=== PATIENT | female | born 2000 ===

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

== ENCOUNTER 2020-05-08 14:47 | Inpatient (IN) | payer OTHER ==
[~2020-05-08] VITALS: Ht 162.6 cm; Wt 44.0 kg
[2020-05-08 15:30] LABS: Source, Urine Clean Catch
[2020-05-08 15:35] LABS: BASOPHILS ABSOLUTE AUTO 0.06 K/mm3 (0.00-0.23); BASOPHILS PERCENT AUTO 1 % (0-2); EOSINOPHILS ABSOLUTE AUTO 0.19 K/mm3 (0.00-0.68); EOSINOPHILS PERCENT AUTO 3 % (0-6); Hemoglobin 12.9 g/dL (11.5-16.0); IMMATURE GRAN ABSOLUTE AUTO 0.02 K/mm3 (0.00-0.10); IMMATURE GRAN PERCENT AUTO 0 % (0-1); LYMPHOCYTES ABSOLUTE AUTO 1.89 K/mm3 (0.84-5.20); LYMPHOCYTES PERCENT AUTO 25 % (21-46); MONOCYTES ABSOLUTE AUTO 0.49 K/mm3 (0.16-1.47); MONOCYTES PERCENT AUTO 7 % (4-13); Mean Corpuscular HGB Conc 31.5 g/dL (31.5-36.5); Mean Corpuscular Volume 89 fL (80-100); Mean Platelet Volume 10.5 fL (9.1-12.4); NEUTROPHILS ABSOLUTE AUTO 4.94 K/mm3 (1.96-9.15); NEUTROPHILS PERCENT AUTO 65 % (41-73); Platelet Count 230 K/mm3 (150-400); RDW Coefficient Variation 15.9 % (11.7-14.2); RDW Standard Deviation 51.8 fL (35.1-46.3); Red Blood Cell Count 4.61 M/mm3 (3.80-5.20); White Blood Cell Count 7.59 K/mm3 (4.00-11.30)
[2020-05-08 15:36] LABS: Bilirubin, Urine Neg (Neg); Blood, Urine 1+ (Neg); Glucose Qualitative, Urine Neg (Neg); Ketones, Urine Neg (Neg); Leukocyte Esterase, Urine 2+ (Neg); Nitrite, Urine Neg (Neg); Protein, Urine Neg (Neg); Specific Gravity, Urine 1.015 (1.003-1.022); Urobilinogen, Urine NORM (Normal)
[2020-05-08 15:42] LABS: Appearance, Urine Clear (Clear); Color, Urine Yellow (P-Yellow)
[2020-05-08 15:44] LABS: Bacteria Mod /hpf; Red Blood Cells, Urine Rare /hpf (0-2); Squamous Epithelial Cells Few /hpf (Few)
[2020-05-08] MEDS ORDERED: PROZAC20 MG PO (15:49)
[2020-05-08] MEDS ORDERED: ESCI20 PO (15:49)
[2020-05-08 15:58] LABS: U Amphetamine Screen Not Detected; U Barbituate Screen Not Detected; U Benzodiazapine Screen Not Detected; U Buprenorphine Screen Not Detected; U Cannabinoids Screen DETECTED; U Cocaine Screen Not Detected; U Methadone Screen Not Detected; U Methamphetamine Screen Not Detected; U Opiates Screen Not Detected; U Oxycodone Screen Not Detected; U Phencyclidine Screen Not Detected; U Propoxyphene Screen Not Detected
[2020-05-08 15:59] LABS: Alanine Aminotransfer (ALT/SGP 26 U/L (12-78); Albumin, Blood 3.8 g/dL (3.4-5.0); Alk Phos 66 U/L (45-116); Anion Gap 3 mmol/L (6-16); Aspartate Aminotrans (AST/SGOT 40 U/L (12-37); Bilirubin, Total 0.4 mg/dL (0.1-1.0); Blood Urea Nitrogen 8 mg/dL (8-21); Bun/Creatinine Ratio 13.1 (12.0-20.0); CO2, Blood 29 mmol/L (21-32); Calcium, Blood 9.2 mg/dL (8.5-10.1); Chloride, Blood 108 mmol/L (98-108); Creatinine, Blood 0.61 mg/dL (0.40-1.00); Ethanol (Alcohol), Blood, Med <3 mg/dL; Globulin, Blood 3.7 g/dL (2.2-4.0); Glomerular Filtration Rate >60 (60-); Glucose, Blood 95 mg/dL (70-99); Magnesium, Blood 2.3 mg/dL (1.6-2.4); Potassium, Blood 4.5 mmol/L (3.5-5.5); Salicylate <1.7 mg/dL (2.8-20.0); Sodium, Blood 140 mmol/L (136-145); Total Protein, Blood 7.5 g/dL (6.4-8.2)
[2020-05-08 16:02] LABS: Acetaminophen, Random <2.0 ug/mL (10.0-30.0)
[2020-05-08 19:08] LABS: Base Excess Venous -5.1 mmol/L; Bicarbonate Venous 20.9 mmol/L (24.0-30.0); PCO2 Venous 32.5 mmHg (38-42); PO2 Venous 112 mmHg (38-42); pH Blood Venous 7.39 (7.34-7.37)
--- NOTE | 2020-05-08 19:28 | NUR ---
Went to Er and received report from Carlos ALMENDAREZ. Patient on ERE [place] intubated with 7.5 ET AC 16, TV 320, FiO2 25%, PEEP 5.0 and sats >90% Pushed to ICU on monitor and portable vent and 4 person slide to ICU 14 bed and hooked up to in room vent same setting. Placed in bilateral soft wrist restraints and hooked to monitor. SDtarted 18ga IV in LFA for possible low dose pressors. Started her on propofol per Dr Greenberg. Dr Jean and Dr Greenberg at bedside. Gokul gtt on standby. Patient as minimal movement bilateral distal extremities. Gave report to Brook ALMENDAREZ and she is assuming care.
--- NOTE | 2020-05-08 20:00 | NUR ---
INITAL SHIFT ASSESSMENT PT IS INTUBATED AND SEDATED AT THIS TIME. ET TUBE IN PLACE WITH BITE BLOCK. PT TOLERATING VENT WELL. NG TUBE IN PLACE WELL WITH PINK TAPE. NG TUBE HOOKED UP TO LOW INT SUCTION WITH MINIMAL WHITE/CLEAR LIQUID RETURN. SEE RT NOTES FOR VENT SETTING CHANGES T/O SHIFT. PT IS SEDATED WITH PROPOFOL GTT RUNNING AT 15MCG. NS STARTED AT 100ML/HR. BOTH ARE RUNNING INTO PERIPHERAL IV'S IN THE LEFT FA/WRIST. PT HAS IV SL IN RIGHT HAND. ALL HAVE CDI DRESSINGS. PT DOES HAVE A BRUISE TO HER RIGHT AC FROM PREVIOUS IV. MARIE TEMP PROBE CATH IN PLACE. DRAINING CLEAR YELLOW URINE WITH NO SEDIMENT. SOFT BILATERAL WRIST RESTRAINTS IN PLACE. SKIN CHECKED AND CIRCULATION. WILL CON'T TO MONITOR AND KEEP PT SAFE T/O REMAINDER OF SHIFT. SEE EMAR AND FLOWSHEET FOR ALL ADMINISTERED MEDICATIONS AND TITRATIONS T/O SHIFT.
[2020-05-09 03:39] LABS: BASOPHILS ABSOLUTE AUTO 0.06 K/mm3 (0.00-0.23); BASOPHILS PERCENT AUTO 1 % (0-2); EOSINOPHILS ABSOLUTE AUTO 0.37 K/mm3 (0.00-0.68); EOSINOPHILS PERCENT AUTO 3 % (0-6); Hematocrit 37.8 % (33.0-51.0); Hemoglobin 11.9 g/dL (11.5-16.0); IMMATURE GRAN ABSOLUTE AUTO 0.03 K/mm3 (0.00-0.10); IMMATURE GRAN PERCENT AUTO 0 % (0-1); LYMPHOCYTES PERCENT AUTO 17 % (21-46); MONOCYTES ABSOLUTE AUTO 0.83 K/mm3 (0.16-1.47); MONOCYTES PERCENT AUTO 7 % (4-13); Mean Corpuscular HGB 28.1 pg (26.0-34.0); Mean Corpuscular HGB Conc 31.5 g/dL (31.5-36.5); Mean Corpuscular Volume 89 fL (80-100); Mean Platelet Volume 9.9 fL (9.1-12.4); NEUTROPHILS ABSOLUTE AUTO 8.23 K/mm3 (1.96-9.15); NEUTROPHILS PERCENT AUTO 72 % (41-73); Platelet Count 184 K/mm3 (150-400); RDW Coefficient Variation 15.8 % (11.7-14.2); RDW Standard Deviation 51.8 fL (35.1-46.3); Red Blood Cell Count 4.23 M/mm3 (3.80-5.20); White Blood Cell Count 11.42 K/mm3 (4.00-11.30)
[2020-05-09 03:59] LABS: Alanine Aminotransfer (ALT/SGP 20 U/L (12-78); Albumin, Blood 3.1 g/dL (3.4-5.0); Albumin/Globulin Ratio 1.1 (0.8-1.8); Alk Phos 58 U/L (45-116); Anion Gap 6 mmol/L (6-16); Aspartate Aminotrans (AST/SGOT 30 U/L (12-37); Bilirubin, Total 0.3 mg/dL (0.1-1.0); Blood Urea Nitrogen 5 mg/dL (8-21); CO2, Blood 22 mmol/L (21-32); Calcium, Blood 7.9 mg/dL (8.5-10.1); Chloride, Blood 114 mmol/L (98-108); Creatinine, Blood 0.62 mg/dL (0.40-1.00); Globulin, Blood 2.9 g/dL (2.2-4.0); Glomerular Filtration Rate >60 (60-); Glucose, Blood 88 mg/dL (70-99); Potassium, Blood 3.7 mmol/L (3.5-5.5); Sodium, Blood 142 mmol/L (136-145)
--- NOTE | 2020-05-09 05:09 | NUR ---
SHIFT SUMMARY PT CON'T TO BE STABLE WITH NO CHANGES FROM BASELINE. THIS RN TALKED WITH POISION CONTROL SEVERAL TIMES T/O SHIFT. PTS HRR WITH NO CHANGES. PT TOLERATED AND RESPONDED WELL TO 45 MCG OF PROPOFOL FOR SEDATION. NS CON'T TO RUN ORDERED. SEE EMAR FOR ALL AMDINISTERED MEDICATIONS. PT DID PULL AGAINST RESTRAINTS AND SHAKE HEAD ABOUT OFF AND ON, BUT DID CALM HERSELF. ORAL CARE DONE AND PT SOMETIMES RESPONDED OTHER TIMES NO RESPONSE. PT CON'T TO HAVE GOOD URINE OUTPUT. NO VENT SETTING CHANGES. WILL CON'T TO MONITOR PT TILL REPORT TO ONCOMING RN.
--- NOTE | 2020-05-09 06:04 | NUR ---
SHIFT UPDATE SEDATION WAS PLACED ON STANDBY AND ATTEMPTED TO WAKE PT. RT PRESENT AND ADJUSTED VENT SETTINGS NEEDED. PT WAS ABLE TO OPEN EYES WHEN ASKED TO. SHE HOWEVER DID NOT FOLLOW ANY OTHER COMMANDS. SEDATION WAS RESTARTED AT 25 MCG.
--- NOTE | 2020-05-09 10:00 | NUR ---
ASSUMED CARE OF PT AT 0700. REPORT FROM CK ALMENDAREZ. PT INTUBATED AND SEDATED. VENT SETTINGS, AC 16/350/5/25%. PROPOFOL INFUSING AT 25 MCG/KG/MIN. LUNGS CLEAR. PT P/W/D. PROPOFOL PLACED ON STANDBY FOR APPROX 25 MIN. PT ABLE TO FOLLOW SIMPLE COMMANDS, COUGH, GAG, SWALLOW REFLEX INTACT. AGITATED BUT REDIRECTABLE. PROPOFOL RESTARTED AT 15 MCG/KG/MIN. NS INFUSING AT 100ML/HR. ST ON MONITOR. BP STABLE. NGT TO LEFT NARE, LIS. SCANT CLEAR EMESIS OUT. MARIE PATENT AND DRAINING TO GRAVITY. CLEAR YELLOW URINE OUT. SCD'S IN PLACE. PT ON 2MD HOLD, ROOM MITIGATION COMPLETED PRIOR TO SHIFT. POSSIBLE EXTUBATION THIS SHIFT. WILL REASSESS SI RISK AND 1:1 OBSERVATION IF EXTUBATED. WILL CONTINUE TO MONITOR.
--- NOTE | 2020-05-09 10:58 | NUR ---
DR CAZARES AT BEDSIDE FOR ASSESSMENT, PROPOFOL PLACED ON STANDBY. SPONT MODE, PT ABLE TO FOLLOW SIMPLE DIRECTIONS. AGITATED BUT ABLE TO REDIRECT. LUNGS CLEAR. FIO2 25%. RT AT BEDSIDE FOR EXTUBATION. NGT REMOVED. PT ABLE TO COUGH AND CLEAR SECRETIONS. EXTUBATED, RESTRAINTS D/C'D.
--- NOTE | 2020-05-09 12:02 | NUR ---
POISON CONTROL SPOKE isabel ROWE AT POSION CONTROL. UPDATED ON EXTUBATION AND EKG. RECOMMENDED MONITORING FOR SEROTONIN SYNDROME, ANTICHOLENERGIC EFFECTS, URINARY RETENTION. RECOMMEND SUPPORTIVE CARE, BENZOS FOR SEIZURES.
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
--- NOTE | 2020-05-09 19:30 | NUR ---
INITAL SHIFT ASSESSMENT PT IS ALERT AND PACING IN ROOM. SHE SITS ON THE EDGE OF BED FOR A MOMENT AND THEN IS UP AND WANDERING. HER GAIT IS NO VERY STABLE, SHE USES THE BED, WALL, COUNTER FOR BALANCE. SHE WILL SIT ON THE FLOOR WELL. PT IS ABLE TO ANSWER SOME OF THIS NURSES QUESTIONS. SHE HOWEVER DOES NOT HOLD A TRAIN OF THOUGHT AND HAS FLIGHT OF THOUGHT. SHE STATES SHE HAS UPPER BODY PAIN, BUT NOT CHEST PAIN. STATES IT IS IN HER SHOULDERS WELL. PT WAS COOPERTIVE WITH HER CARE AT THIS TIME. VITALS ARE STABLE AT THIS TIME. PT IS DRINKING WATER AND EATING CRACKERS. ALL CORDS AND OBJECTS WERE REMOVED FROM ROOM. SITTER WILL BE WITH PT T/O SHIFT. BOYFRIEND HAS LEFT FOR THE NIGHT AND PT HAS ASKED SEVERAL TIMES THUS FAR ABOUT WHERE HE IS. WILL CON'T TO MONITOR PT AND KEEP SAFE. AT THIS TIME SHE IS ANXIOUS AND AGGITATED, BUT NOT VIOLENT WITH STAFF.
--- NOTE | 2020-05-09 21:28 | NUR ---
SHIFT UPDATE 2030 PT STARTED TO HAVE MORE AGGITATION AND WAS ATTEMPTING TO LEAVE THE ROOM. THIS RN WAS IN ANOTHER ROOM, BUT WAS ABLE TO LEAVE ROOM WHEN PT BEGAN TO RUN OUT OF THE UNIT. SECURITY WAS IN THE [place] WAY AND PREVENTED THE PT FROM CON'T TO RUN DOWN THE [place]. CLERK TRAVEL RESERVATIONS BROUGHT PT'S BED TO [place] AND PT WAS BROUGHT BACK TO THE UNIT. AT THIS TIME PT WAS PLACED IN 4 POINT SOFT RESTRAINTS. PT CON'T TO BE AGGITATED BY SCREAMING AND THREATING TO SPIT AND KICK ALL STAFF PRESENT. PT WAS GIVEN IM ZYPREXA. SHORTLY THERE AFTER PT BEGAIN TO TRY TO BIT OFF THE WRIST RESTRAINTS AND SLID DOWN THE BED AND FLIP OVER ONTO HER ABD. SHE WAS GIVEN IV ATIVAN AT THAT TIME. PROVIDER STEFANIA WAS PRESENT. WILL START PRECEDEX GTT IF NEEDED TO HELP MAINTAIN A STEADY SEDATION TO KEEP PT SAFE AND CALM. PT AT THIS TIME IS TALKING OFF AND ON TO COGNOS ADMINISTRATOR SITTING WITH HER. SHE CON'T TO PULL AT RESTRAINTS. VITALS ARE STABLE, PT WAS PLACED BACK ON MONITOR.
--- NOTE | 2020-05-09 22:26 | NUR ---
PRECEDEX GTT PT CON'T TO HAVE INCREASED AGGITATION. CONSTANT SCREAMING AND THRASHING ABOUT IN BED. PRECEDEX GTT WAS STARTED. WILL CON'T TO TITRATE NEEDED. NS WAS ALSO STARTED AT THIS TIME. PT CON'T TO BE IN 4 POINT RESTRAINTS.
--- NOTE | 2020-05-10 00:07 | NUR ---
SHIFT UPDATE PT CON'T TO THRASH ABOUT IN BED EVEN WITH PRECEDEX GTT AT 0.7MCG. PT WAS GIVEN A SECOND DOSE OF IV ATIVAN. SHE AT THIS TIME IS RESTING THE MOST QUIETLY SHE HAS THUS FAR. WILL CON'T TO ASSESS THE NEED FOR ANKLE RESTRAINTS.
--- NOTE | 2020-05-10 05:18 | NUR ---
SHIFT SUMMARY PT HAS BEEN RESTING WELL SINCE PRECEDEX GTT WAS STARTED. SHE CON'T TO WAKE AND MOVE ABOUT IN BED AT TIMES. SHE WILL PULL AGAINST RESTRAINTS, BUT THEN RELAXES BACK DOWN. SHE APPEARS TO BE MORE COMFORTABLE WITH HER LEGS BEING FREE FROM RESTRAINTS. PT PULLS KNEES UP TO CHEST AND MOVES FROM SIDE TO SIDE INDEPENDENTLY. SOFT TERI WRIST RESTRAINTS CON'T TO BE IN PLACE WITH NO ISSUES TO CIRCULATION OR SKIN. VITALS ARE STABLE. WILL CON'T TO MONITOR AND KEEP PT SAFE T/O REMIANDER OF SHIFT.
--- NOTE | 2020-05-10 08:00 | NUR ---
INITIAL ASSESSMENT PATIENT SLEEPING UPON ENTERING ROOM. ON PRECEDEX AT 0.4 MCG/ KG/ HOUR. PATIENT LETHARGIC AND SLOW TO RESPOND. PATIENT ORIENTED TO QUESTIONS. PATIENT DOES MAKE CONFUSED STATEMENTS AT TIMES. PATIENT LABILE. COOPERATIVE, CALM AND APPRECIATIVE AT TIMES AND ANGRY AND AGITATED AT OTHERS. PATIENT WITHDRAWN. PATIENT AFEBRILE. NO COMPLAINTS OF PAIN AT THIS TIME. PATIENT SATTING 90% AND GREATER ON RA. LUNGS CLEAR THROUGHOUT. PATIENT IN SR, HR 70S TO 80S. BP STABLE. GI WNL. ATTENDS IN PLACE FOR OCCASIONAL INCONTINENCE. SCATTERED BRUISES NOTED TO EXTREMITIES. BED LOW, CALL LIGHT IN REACH. WILL CONTINUE TO MONITOR PATIENT FREQUENTLY THROUGHOUT SHIFT.
--- NOTE | 2020-05-10 12:00 | NUR ---
PATIENT ON PRECEDEX AT 0.2 MCG/ KG/ HOUR. PATIENT REMAINS LABILE. PATIENT AFEBRILE. HR 90S TO 100. BP STABLE. NO COMPLAINTS OF PAIN.
--- NOTE | 2020-05-10 12:31 | NUR ---
SPOKE WITH DR. ROGERS TO UPDATE ON PATIENT STATUS. PATIENT WILL BE GOING TO HEAD CT. DR. ROGERS STATED NURSE DID NOT NEED TO GO WITH PATIENT. SYSTEMS TESTER AND SECURITY WILL BE GOING WITH PATIENT.
--- NOTE | 2020-05-10 13:05 | NUR ---
Safety Plan not complete, unable to interview patient Physician notes indicate transfer to a higher level of psych care once stable medically. Pt sleeping at time of attempted interview at 0930. On 1:1 and involuntary hold. [employer] for Hold arrived and spoke with RN. Suicide Safety Planwill need completed if patient is not transferred to higher level of care RN and Supervisor Heavy Equipment informed. Isela Guadalupe M.Ed., [facility]
[2020-05-10] MEDS ORDERED: CYCL10 PO (13:10)
--- NOTE | 2020-05-10 19:14 | NUR ---
SHIFT SUMMARY PATIENT REMAINED VERY LABILE THROUGHOUT SHIFT. PATIENT CALM AND COOPERATIVE AT ONE MOMENT AND YELLING/ ANGRY/ TRYING TO LEAVE UNIT THE NEXT. PATIENT STATED DURING SHIFT THAT SHE "NEEDS A MOOD STABILIZER". SHE ALSO STATED THAT SHE "SHOULDN'T HAVE MEDICATIONS TO TAKE AT HOME BECAUSE SHE CAN'T HANDLE IT". PATIENT STATED THAT SHE DID TRY TO KILL HERSELF BEFORE BUT "IS BETTER NOW AND WANTS TO GO HOME". PATIENT ANSWERED ALL ALERT AND ORIENTED QUESTIONS CORRECTLY, HOWEVER DID MAKE STATEMENTS THAT WERE CONFUSED AND OUT OF CONTEXT. PATIENT HAD NO COMPLAINTS OF PAIN. PATIENT REMAINED AFEBRILE. PATIENT REMAINED SATTING 90% AND GREATER ON RA. PATIENT REMAINED IN SR TO ST, HR 70S TO 100. BP REMAINED STABLE. GI WNL. NO BM TODAY. PATIENT ONLY ATE A LITTLE LUNCH. ATTENDS IN PLACE FOR OCCASIONAL INCONTINENCE. NO CHANGE TO SKIN. PRECEDEX INFUSING AT 0.6 MCG/ KG/ HOUR. NO COMPLAINTS AT THIS TIME. REPORT GIVEN TO [facility] BUSINESS SERVICES SALES AGENT NURSE.
--- NOTE | 2020-05-10 20:00 | NUR ---
ASSUMED CARE: PT DROWSY IN BED. DAYSHIFT REPORTED HER MOOD TO BE VERY LAIBLE T/O DAY; GOING FROM CALM TO VERY AGITATED QUICKLY. IN SR. HR 70-100, SBP 100S. PT WAS EXT YESTERDAY. CURRENTLY ON RA. PT IS IN AN ATTENDS FOR OCCASIONAL INCONTINENCE. 2 PIVS IN LFA AND L WRIST. PRECEDEX INFUSING AT 0.6 MCG. PT IS TO NOT HAVE ANY VISITORS AT THIS TIME. WILL CONTINUE TO MONITOR
--- NOTE | 2020-05-10 20:33 | NUR ---
PT DENIES ANY SI AT THIS TIME.
--- NOTE | 2020-05-11 00:26 | NUR ---
PT BECAME AGITATED AFTER EATING SOME PUDDING. WAS ABLE TO GET OUT OF BED. WITH SOME COAXING PT WILLINGLY GOT BACK IN BED. SHE IS TEARFUL AND AGITATED. WANTS TO GO HOME. DOESNT UNDERSTAND WHY SHE HAS TO STAY AND WHY SHE ISNT ABLE TO MAKE HER OWN DECISIONS REGARDING HOSPITALIZATION. WILL CONTINUE TO MONITOR.
--- NOTE | 2020-05-11 06:30 | NUR ---
SHIFT SUMMARY: PT SLEEPING MAJORITY OF SHIFT. PT FOR THE MOST PART CALM AND COOPERATIVE. AT TIMES CONFUSED AND NOT ANSWERING QUESTIONS APPROPRIATELY. FORGETS WHY SHE IS IN HOSPITAL AND WHY SHE CANT LEAVE. SHE CAN GO FROM BEING CALM/COOPERATIVE TO AGITATED AND ARGUMENTATIVE. PRECEDEX WAS INCREASED FROM 0.6 TO 1 AND THEN TO 1.4. PT STILL AGITATED SO 2 MG OF ATIVAN IV GIVEN. PT THEN SLEPT THE REMAINDER OF SHIFT. VSS. SHE IS INCONTINENT OF URINE AND IS IN ATTENDS. PT HAS ONE IV IN LFA INFUSING WITH PRECEDEX AT 1 MCG. WILL PASS REPORT TO ONCOMING SHIFT
--- NOTE | 2020-05-11 08:00 | NUR ---
INITIAL ASSESSMENT PATIENT WOKE EASILY TO VERBAL STIMULI THIS AM. PATIENT SLOW TO RESPOND BUT ALERT AND ORIENTED X 4. PATIENT CAN BE LABILE BUT IS BEING CALM AND COOPERATIVE AND FOLLOWING COMMANDS APPROPRIATELY AT THIS TIME. PATIENT DENIES SI. PATIENT WEAK. PATIENT AFEBRILE. PATIENT HAS NO COMPLAINTS OF PAIN AT THIS TIME. LUNG SOUNDS CLEAR. PATIENT SATTING 90% AND GREATER ON RA. PATIENT IN SR, HR IN THE 70S. BP SOFT BUT STABLE. GI WNL. PATIENT STATES THAT SHE HAS HAD BM SINCE BEING IN THE HOSPITAL. ATTENDS IN PLACE FOR OCCASIONAL URINARY INCONTINENCE. BRUISES NOTED TO EXTREMITIES. PRECEDEX INFUSING AT 1 MCG/ KG/ HOUR, NS TKO. BED LOW, CALL LIGHT IN REACH. SITTER PRESENT. WILL CONTINUE TO MONITOR PATIENT FREQUENTLY THROUGHOUT SHIFT.
--- NOTE | 2020-05-11 10:30 | NUR ---
POISON CONTROL CALLED TO CHECK UP ON PATIENT. NO RECOMMENDATIONS AT THIS TIME.
--- NOTE | 2020-05-11 11:05 | NUR ---
NURSE SPOKE TO PATIENT ABOUT GIVING OUT HER PERSONAL HEATLH INFORMATION. PATIENT IS STILL STATING THAT SHE DOES NOT WANT HER MOM, SADIE, TO HAVE ANY INFORMATION ABOUT HER BUT THAT HER BOYFRIEND, ELMER, CAN HAVE PERSONAL HEALTH INFORMATION ON HER.
--- NOTE | 2020-05-11 11:11 | NUR ---
DR. CASTRO HERE TO SEE PATIENT. INFORMED OF SOFT BPS. INFORMED THAT PATIENT IS EATING AND DRINKING A LITTLE WHEN AWAKE. ORDER FOR 1 L NS AT 75 MLS OBTAINED.
[2020-05-11 11:55] LABS: BASOPHILS ABSOLUTE AUTO 0.06 K/mm3 (0.00-0.23); BASOPHILS PERCENT AUTO 1 % (0-2); EOSINOPHILS ABSOLUTE AUTO 0.55 K/mm3 (0.00-0.68); EOSINOPHILS PERCENT AUTO 8 % (0-6); Hematocrit 41.5 % (33.0-51.0); Hemoglobin 13.2 g/dL (11.5-16.0); IMMATURE GRAN ABSOLUTE AUTO 0.01 K/mm3 (0.00-0.10); IMMATURE GRAN PERCENT AUTO 0 % (0-1); LYMPHOCYTES ABSOLUTE AUTO 1.39 K/mm3 (0.84-5.20); LYMPHOCYTES PERCENT AUTO 21 % (21-46); MONOCYTES ABSOLUTE AUTO 0.52 K/mm3 (0.16-1.47); MONOCYTES PERCENT AUTO 8 % (4-13); Mean Corpuscular HGB Conc 31.8 g/dL (31.5-36.5); Mean Corpuscular Volume 88 fL (80-100); NEUTROPHILS ABSOLUTE AUTO 4.12 K/mm3 (1.96-9.15); NEUTROPHILS PERCENT AUTO 62 % (41-73); Platelet Count 242 K/mm3 (150-400); RDW Coefficient Variation 14.9 % (11.7-14.2); RDW Standard Deviation 48.6 fL (35.1-46.3); Red Blood Cell Count 4.72 M/mm3 (3.80-5.20); White Blood Cell Count 6.65 K/mm3 (4.00-11.30)
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
[2020-05-11 12:19] LABS: Alanine Aminotransfer (ALT/SGP 43 U/L (12-78); Albumin, Blood 3.1 g/dL (3.4-5.0); Albumin/Globulin Ratio 0.8 (0.8-1.8); Alk Phos 60 U/L (45-116); Anion Gap 4 mmol/L (6-16); Aspartate Aminotrans (AST/SGOT 70 U/L (12-37); Bilirubin, Total 0.3 mg/dL (0.1-1.0); Blood Urea Nitrogen 11 mg/dL (8-21); Bun/Creatinine Ratio 20.4 (12.0-20.0); CO2, Blood 26 mmol/L (21-32); Calcium, Blood 9.1 mg/dL (8.5-10.1); Chloride, Blood 106 mmol/L (98-108); Creatinine, Blood 0.54 mg/dL (0.40-1.00); Globulin, Blood 3.7 g/dL (2.2-4.0); Glomerular Filtration Rate >60 (60-); Glucose, Blood 107 mg/dL (70-99); Sodium, Blood 136 mmol/L (136-145); Total Protein, Blood 6.8 g/dL (6.4-8.2)
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
--- NOTE | 2020-05-11 16:41 | NUR ---
CALLED AND INFORMED DR. CASTRO OF PATIENT'S SBP IN THE 80S. INFORMED THAT HR IN THE 80S WELL. ORDERED FOR 500 CC NS BOLUS AND THEN 1 L NS AT 75 MLS/ HOUR AFTER.
--- NOTE | 2020-05-11 19:09 | NUR ---
SHIFT SUMMARY PATIENT REMAINED ALERT AND ORIENTED X 4, AFEBRILE. PATIENT NAPPED ON AND OFF THROUGHOUT SHIFT. PATIENT CONTINUES TO DENY SI. PATIENT CONTINUES TO ALTERNATE BETWEEN HAPPY, TEARFUL, AND UPSET. PATIENT HAS REMAINED CALM AND COOPERATIVE. PATIENT WEAK BUT HAS BEEN ABLE TO MOVE AROUND THE ROOM WITH 1 PERSON ASSIST. PATIENT IN RESTRAINTS AND ON PRECEDEX AT 1 MCG/ KG/ HOUR WHEN SHIFT BEGAN. PATIENT TAKEN OUT OF RESTRAINTS WHEN CAME ON SHIFT AND HAS BEEN TITRATED DOWN TO 0.2 MCG/ KG/ HOUR OF PRECEDEX BY END OF SHIFT. PATIENT HAS REMAINED SATTING 90% AND GREATER ON RA. LUNGS CLEAR THROUGHOUT. PATIENT HAS REMAINED SR TO ST, HR 70S TO LOW 100S. BP SOFT OCCASIONALLY DURING SHIFT. PATIENT GIVEN 1 L NS AT 75 MLS/ HOUR, THEN 500 CC NS BOLUS AND NOW ANOTHER LITER NS AT 75 MLS/ HOUR. BP HAS IMPROVED. PATIENT ATE AND DRANK WELL THIS SHIFT. NO CHANGE TO SKIN. PATIENT REPOSITIONING SELF IN BED. PATIENT HAD FULL BED BATH THIS SHIFT. BED LOW, CALL LIGHT IN REACH. NO COMPLAINTS AT THIS TIME. REPORT HAS BEEN GIVEN TO [facility] FORGING MACHINE OPERATOR NURSE.
--- NOTE | 2020-05-11 23:00 | NUR ---
ASSUMED CARE: PT STABLE. VSS. SHE IS AWAKE AND CALM/ COOPERATIVE, LAUGHING WITH SITTER. DENIES SI AT THIS TIME. PRECEDEX INFUSING AT 0.2
--- NOTE | 2020-05-12 06:37 | NUR ---
SHIFT SUMMARY: PT CALM, COOPERATIVE, PLEASANT T/O THE NIGHT. SLEPT ON AND OFF. SHE IS A&O. AFEBRILE. LUNG SOUNDS CLEAR ON RA SPO2 90%. IN SR. SBP IN THE 80-90S, HR IN THE 80S. PT VOIDS ON OWN. 1 PIV IN RFA INFUSING WITH NS TKO AND PRECEDEX AT 0.2. PT DENIES ANY SI. UNDERSTANDS THAT ON WEDNESDAY SHE IS MEETING WITH DR SMITH. AWAITING INPT PSYCH BED. MOM CALLS FREQUENTLY WANTING UPDATES. PT DOES NOT WANT MOM TO HAVE ANY UPDATES EXCEPT THAT SHE IS IN HOSPITAL AND DOING WELL. ASKING PT EACH TIME MOM CALLS IF ITS OK TO GIVE MOM UPDATES CAUSES HER TO FEEL OVERWHELMED. PLAN IS TO CONTINUE TO TELL MOM SHE IS IN HOSPITAL AND DOING WELL ONLY. PT WILL LET NURSING KNOW WHEN IT IS OK TO GIVE MOM ADDITIONAL UPDATES. WILL PASS REPORT TO ONCOMING SHIFT
--- NOTE | 2020-05-12 08:00 | NUR ---
INITIAL ASSESSMENT PATIENT ALERT AND ORIENTED X 4, AFEBRILE. PATIENT CALM AND COOPERATIVE. PATIENT ADMITS THAT SHE TRIED TO KILL HERSELF BUT STATES THAT SHE "MADE A MISTAKE". PATIENT STATES THAT SHE NO LONGER FEELS SUICIDAL. NO COMPLAINTS OF PAIN. PATIENT SATTING 90% AND GREATER ON RA. LUNGS CLEAR THROUGHOUT. PATIENT IN SR, HR 80S TO 90S. SBP 80S TO 90S. GI WNL. WNL. BRUISES NOTED TO EXTREMITIES. NS TKO. PRECEDEX AT 0.2 MCG/ KG/ HOUR. BED LOW, CALL LIGHT IN REACH. WILL CONTINUE TO MONITOR PATIENT FREQUENTLY THROUGHOUT SHIFT.
--- NOTE | 2020-05-12 10:20 | NUR ---
SPOKE WITH DR. CASTRO CONCERNING PATIENT'S EARLIER SOFT BP AND INCREASED HR. ORDERED FOR 1 L NS AT 75 MLS/ HOUR.
--- NOTE | 2020-05-12 11:55 | NUR ---
CALLED AND INFORMED DR. CASTRO THAT PATIENT CONTINUES TO HAVE HR IN THE 130S AT REST. INFORMED THAT SBP IN THE 80S. PATIENT STATES THAT SHE DOES FEEL LIKE HEART IS POUNDING/ RACING BUT THAT IT HAPPENS TO HER AT HOME TOO. DOCTOR ORDERED FOR EKG, ECHO FOR TOMORROW AND 500 CC NS BOLUS.
--- NOTE | 2020-05-12 12:00 | NUR ---
PATIENT REMAINS CALM AND COOPERATIVE. PATIENT IS TEARFUL AT TIMES. AFEBRILE. NO COMPLAINTS OF PAIN. HR 130S AT REST. SBP IN THE 80S. PRECEDEX IS OFF. 500 CC NS BOLUS TO BEGIN.
--- NOTE | 2020-05-12 12:31 | NUR ---
POISON CONTROL CALLED TO CHECK UP ON PATIENT. INFORMED THAT PATIENT'S HR INCREASED TODAY. POISON CONTROL STATED THAT FLUOXETINE HAS A HALF LIFE OF 84 HOURS AND THAT THE TREATMENT IS BENZOS SO TO KEEP THAT IN MIND.
--- NOTE | 2020-05-12 13:11 | NUR ---
Echocardiogram com[pleted.
--- NOTE | 2020-05-12 14:29 | NUR ---
UPDATED DR. CASTRO ON PATIENT CONDITION. INFORMED THAT MAG CAME BACK AT 2.2. INFORMED OF EKG RESULTS AND THAT ECHO COMPLETE. INFORMED THAT HR IN THE 120S AT REST WITH SBP 90S TO LOW 100S. INFORMED THAT NS REMAINS INFUSING AT 75 MLS/ HOUR. INFORMED THAT POISON CONTROL STATED FLUOXETINE HAS HALF LIFE OF 84 HOURS AND TO TREAT WITH BENZOS. DR. CASTRO STATED TO GIVE ANOTHER 500 CC NS BOLUS.
--- NOTE | 2020-05-12 16:00 | NUR ---
PATIENT AFEBRILE. NO COMPLAINTS OF PAIN. HR 80S AT REST AND 100 TO 130S WITH ACTIVITY. SBP 90S TO LOW 100S. PRECEDEX REMAINS OFF. NS INFUSING AT 75 MLS/ HOUR.
--- NOTE | 2020-05-12 19:00 | NUR ---
ASSUMED CARE OF PATIENT. PATIENT ON 1:1 WITH SITTER AT BEDSIDE. RECEIVED REPORT FROM OFFGOING SHIFT. ROOM CLEARED OF POTENTIALLY HAZARDOUS ITEMS. PATIENT APPEARS CALM AND COOPERATIVE AT THIS TIME.
--- NOTE | 2020-05-12 19:56 | NUR ---
SHIFT SUMMARY PATIENT DID WELL OVERALL THROUGHOUT SHIFT. PATIENT REMAINED CALM AND COOPERATIVE. PATIENT TEARFUL AT TIMES, HOWEVER MOOD SEEMED MORE CONSISTENT THAT PREVIOUS SHIFT. PATIENT STATES SHE ENJOYS TALKING WITH THE STAFF AND SITTERS. PATIENT REMAINED ALERT AND ORIENTED X 4, AFEBRILE. PATIENT HAD NO COMPLAINTS OF PAIN. RESP REMAINED WNL. PATIENT HAD INCREASED HR AND DECREASED BP DURING SHIFT. PATIENT GIVEN 2 500 CC NS BOLUSES AND NS AT 75 X 1 L. HR HAS SINCE COME DOWN AND BLOOD PRESSURE IMPROVED. PATIENT DID STATE THAT SHE FEELS LIKE HEART "RACES SOMETIMES AT HOME TOO". GI REMAINED WNL. PATIENT EATING AND DRINKING WELL. WNL. NO CHANGE TO SKIN. PATIENT HAS BEEN INDEPENDENT IN ROOM WITH OCCASIONAL HELP WITH LINES AND CORDS. PRECEDEX HAS BEEN OFF SINCE 1015 THIS AM. PATIENT HELPED PERFORM OWN BED BATH WITH EXERCISE EQUIPMENT REPAIR TECHNICIAN ASSISTANCE. PATIENT HAD EKG AND ECHO. DR. JEREZ INCREASED NIGHTLY DOSE OF SEROQUEL TODAY. PATIENT HAS NO COMPLAINTS AT THIS TIME. REPORT GIVEN TO SENIOR ABAP DEVELOPER NURSE SHORT TIME AGO.
[2020-05-13 03:33] LABS: BASOPHILS ABSOLUTE AUTO 0.08 K/mm3 (0.00-0.23); BASOPHILS PERCENT AUTO 1 % (0-2); EOSINOPHILS ABSOLUTE AUTO 0.48 K/mm3 (0.00-0.68); EOSINOPHILS PERCENT AUTO 7 % (0-6); Hematocrit 39.8 % (33.0-51.0); Hemoglobin 12.7 g/dL (11.5-16.0); IMMATURE GRAN ABSOLUTE AUTO 0.02 K/mm3 (0.00-0.10); IMMATURE GRAN PERCENT AUTO 0 % (0-1); LYMPHOCYTES ABSOLUTE AUTO 2.75 K/mm3 (0.84-5.20); LYMPHOCYTES PERCENT AUTO 37 % (21-46); MONOCYTES ABSOLUTE AUTO 0.54 K/mm3 (0.16-1.47); MONOCYTES PERCENT AUTO 7 % (4-13); Mean Corpuscular HGB 28.2 pg (26.0-34.0); Mean Corpuscular HGB Conc 31.9 g/dL (31.5-36.5); Mean Corpuscular Volume 88 fL (80-100); Mean Platelet Volume 9.8 fL (9.1-12.4); NEUTROPHILS ABSOLUTE AUTO 3.48 K/mm3 (1.96-9.15); NEUTROPHILS PERCENT AUTO 47 % (41-73); Platelet Count 262 K/mm3 (150-400); RDW Standard Deviation 48.7 fL (35.1-46.3); White Blood Cell Count 7.35 K/mm3 (4.00-11.30)
[2020-05-13 03:54] LABS: Alanine Aminotransfer (ALT/SGP 38 U/L (12-78); Albumin/Globulin Ratio 0.8 (0.8-1.8); Alk Phos 53 U/L (45-116); Anion Gap 5 mmol/L (6-16); Aspartate Aminotrans (AST/SGOT 32 U/L (12-37); Bilirubin, Total 0.2 mg/dL (0.1-1.0); Blood Urea Nitrogen 12 mg/dL (8-21); Bun/Creatinine Ratio 24.5 (12.0-20.0); CO2, Blood 27 mmol/L (21-32); Calcium, Blood 8.8 mg/dL (8.5-10.1); Chloride, Blood 106 mmol/L (98-108); Creatinine, Blood 0.49 mg/dL (0.40-1.00); Globulin, Blood 3.6 g/dL (2.2-4.0); Glomerular Filtration Rate >60 (60-); Glucose, Blood 91 mg/dL (70-99); Potassium, Blood 3.4 mmol/L (3.5-5.5); Sodium, Blood 138 mmol/L (136-145); Total Protein, Blood 6.6 g/dL (6.4-8.2)
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
--- NOTE | 2020-05-13 08:05 | NUR ---
ASSUMED CARE OF PT. PT IS TACHYCARDIC, ESPECIALLY WHEN AMBULATING. FOLLOWING COMMANDS. PT DENIES OF SUICIDE OR ANY PLANS OF SUICIDE. PT EXPRESSED PLANS OF GOING HOME. SITTER AT BEDSIDE.
--- NOTE | 2020-05-13 10:44 | NUR ---
CARE ASSUMED FADUMO FROM PSYCH SERVICES HAS BEEN IN TO SEE PATIENT, PATIENT UPSET AFTER FINDING OUT SHE IS NOT BEING DISCHARGED TO HOME TODAY. SEROQUEL ADMINISTERED BY ERICKSON GONZALEZ FOR CRYING AND AGITATION. PT NOW SITTING IN CHAIR BY THE WINDOW, HR 104 SINUS, PT HAS CALMED AND IS NO LONGER SOBBING. 1:1 SITTER AT BEDSIDE, WILL CONTINUE TO MONITOR. SI PRECAUTIONS IN PLACE.
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
--- NOTE | 2020-05-13 12:08 | NUR ---
CARE BACK TO ERICKSON GONZALEZ.
--- NOTE | 2020-05-13 14:49 | NUR ---
1015-FADUMO ROBBINS AT BEDSIDE TALKING TO PATIENT RE: SAFETY PLAN. 1035-DR. CASTRO CAME BY TO SEE PATIENT. PT WAS CRYING SINCE SHE WANTED TO GO HOME. SHE KEPT STATING SHE IS NOT SUICIDCAL AND THAT SHE DOES NOT UNDERSTAND WHY SHE IS BEING COOPED IN A ROOM. EXPLAINED TO HER THE REASONS WHY RULES ARE IMPLEMENTED WHEN PATIENT INITIALLY CAME IN SUICIDAL. 1449-HR IMPROVED. PT WILL BE TRANSFERED TO MEDICAL FLOOR ON TELE.
--- NOTE | 2020-05-13 18:08 | NUR ---
PT TRANSFERED/SHIFT SUMMARY PT TRANSFERED TO 352 FROM ICU. PT ORIENTED TO ROOM. CALL LIGHT IN PLACE. BEVERAGE AT BEDSIDE. 1:[address] CAMERA MONITOR ON & CONFIRMED WITH FAHEEM HERNÁNDEZ. IV ACCESS CURRENTLY BEING ESTABLISHED. TELE RUNNING NSR IN THE 80S. WILL CONTINUE TO MONITOR UNTIL TURNOVER IS COMPLETE.
--- NOTE | 2020-05-13 18:15 | NUR ---
1500- PT HAS BEEN UNCOOPERATIVE. PATIENT HAS BEEN PICKING ON HER IV. INFORMED HER NOT TO PULLED IV OUT. PT STATED SHE WANTED TO GO HOME AND KEEPS ASKING WHEN THE DOCTOR COMES IN. PT HAS EXTREME MOOD SWINGS FROM BEING NICE TO BEING UNCOOPERATIVE AND MANIPULATIVE. 1700-PT IS ALMOST OUT OF THE DOOR. SHE HAS BEEN INCHING HERSELF OUT. PT STATES SHE WANTED TO SEE THE DRSim AND INSISTING TO GO HOME. EXPLAINED TO HER THAT SHE IS ON A 2 MD HOLD. PT STILL VERY UNCOOPERATIVE. 173-PT WAS TRANSFERED TO MEDICAL FLOOR TO ROOM 352. REPORT GIVEN TO ERICKSON LIMA. 1813-HAD TRIED TO CALL DR. SMITH TWICE TODAY. NO ANSWER. LEFT MESSAGE ON VOICE MAIL.
--- NOTE | 2020-05-13 18:39 | NUR ---
BEHAVIOR CHANGE AFTER GETTING A NEW IV, PT REPORTS FEELING "WHOOZY" WHILE STANDING AT THE DOORWAY. THIS RN HELPED PT BACK TO BED. SIDE RAILS PLACED UP. 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 PT EDUCATED ON WHY SHE CANNOT GET OUT OF BED. PT UP OUT OF BED 5 MINUTES LATER ASKING TO USE THE BATHROOM. PT STATES SHE "FEELS BETTER" AND SKIPS TO THE BATHROOM WITH THE AIDE. AWATING SARAH'S CONSULT.
--- NOTE | 2020-05-13 19:48 | NUR ---
PT MANIC RUNNING AROUND ROOM ASKING TO HAVE BOYYFRIEND IN. DR ROSENUFF IN TO SEE PT RECOMMENDING INPT PSYCH ON TRANSFER. INCREASED SEROQUEL DOSE TO 150 MG AT HS. 1 TO 1 SITTER, OTHER FIELD ARTILLERY BASIC AT DOOR DUE TO ATTEMPTS TO LEAVE UNSAFE BEHAVIOR. COOPERATIVE WITH MEDS, BEGGING TO HAVE BOYFRIEND IN. CONTINUE TO OBSERVE 1 TO 1 FOR SERIOUS SUICIDE ATTEMPT.
--- NOTE | 2020-05-13 20:56 | NUR ---
PT was medicated for agitated behavior with 150 mg seroquel & she had 1 to 1 sitter Gerri & required additional attention to prevent leaving secure unit. She had placed self on floor with pillow & blanket & rested for a few minutes then said she wanted to use bathroom & she bolted out into hallway & was combative with 4 or 5 staff swinging kicking yelling she was going to leave very agressive & strong for size. Security called & they said we needed to let her go & call 911 to have PT apprehended. PT removed IV intact around 2044 & left special care unit with security following at 2049. Enzo RN called [employer] & was calling nonemergent dispatch per instructions. PT dressed only in pullup depends & light gown. Will notify MD & Family of PT on 2 MD psych hold for self harm Suicide attempt on 05/08/20. PT admits she tried to kill herself that she had attempted multiple other times. Tele monitor removed as PT attempting to leave, had been tachycardic.
--- NOTE | 2020-05-13 21:11 | NUR ---
Police have PT in Hospital currently attempting to de-escalate & they accompanied PT who walked back into special care unit at 2110 & walked back to room. PEr PT request called PTs significal other Urbano who says he is going to pick her up. Counselled not to pick her up as she needs help that it was illegal as it was a 2 MD hold & he disagreed. She again became agressive violent & kicking hitting staff attempting to go down 3rd floor stairway. Security called & she left unit at 2127. Again notified police & house wrecker. Will call hospitalist & will seek ICU bed for further psych tx. 2132.
--- NOTE | 2020-05-13 21:38 | NUR ---
DR Lobo called & updated on violent agressive bx on PT on invovontary hold overnight psych monitoring. PT not appropriote for special care untit due to psycotic state. Order to return only through ER, DC AMA & in violation of medical hold. Significant other in violation of 2 MD hold picked her up from Hospital. Tele had been reapplied & IV out. Tele monitor removed prior to AMA. Police informed of elopement & they are aware she left facility with significant Nitin Felton [phone]. MD DAMICO HE aware of elopement x 2 this time PT left facility.
--- NOTE | 2020-05-13 21:56 | NUR ---
Mother Rose Brewer [phone] notified of PT AMA in violation of 2 MD hold & inpt psych monitoring order. Encouraged to call nonemergent dispatch to seek further psych care.
--- NOTE | 2020-05-13 22:18 | NUR ---
CALLED DR. JEREZ AND LEFT A MESSAGE REGARDING THE PATIENT ESCAPING FROM THE UNIT. I INFORMED HIM THAT IF THE POLICE DO BRING HER BACK SHE WILL BE ADMITTED THROUGH THE ER.
--- NOTE | 2020-05-14 04:28 | NUR ---
Late entry for 199905/13/2020. Plan of care discussed safety suicide prevention 1 to 1 sitter, activity. PT impulsive, begging staff to let her leave. Explained 2 MD hold & plan if PT left special care unit AISLINN
== END 2020-05-13 21:45 | disposition left against medical advice (07) | DRG 917 ==
LOC: ER 14:47 → ERHOLD 14:48 → ICUW 14:48 → MEDS 05-13 17:31
PROVIDERS: Emergency Medicine; Internal Medicine; Nurse Practitioner Acute Care; ADMIT Internal Medicine
PROC: 0BH17EZ Insertion of Endotracheal Airway into Trachea, Via Natural or Artificial Opening (ICD-10-PCS; principal; 2020-05-09)
PROC: 5A1935Z Respiratory Ventilation, Less than 24 Consecutive Hours (ICD-10-PCS; 2020-05-09)
DX: T43.222A Poisoning by selective serotonin reuptake inhibitors, intentional self-harm, initial encounter (principal); G92 Toxic encephalopathy; N39.0 Urinary tract infection, site not specified; F41.9 Anxiety disorder, unspecified; Z78.1 Physical restraint status; F17.210 Nicotine dependence, cigarettes, uncomplicated; F43.10 Post-traumatic stress disorder, unspecified; F32.9 Major depressive disorder, single episode, unspecified; E87.6 Hypokalemia
CPT/HCPCS: 31500; 31720; 36415; 51702; 70450; 71045; 80053; 81001; 81025; 82803; 83735; 85025; 87077; 87086; 87186; 93005; 93010; 93306; 94002; 94003; 94770; 96361; 96361-59; 96374-59; 96375; 96375-59; 96376; 99285-25; A9270; A9270-GY; C9113; G0378; G0480; J1650; J2060; J2250; J2704; J7030; J7040; J7050